=== PATIENT | female | born 1990 | race Caucasian/White ===

== ENCOUNTER 2017-01-07 15:20 | Emergency (ER) | payer OTHER ==
--- NOTE | 2017-01-07 16:05 | ER Document Report ---
ED Medical Screen (RME) - General Chief Complaint: Eye Pain Stated Complaint: LEFT EYE PAIN,REDNESS Time Seen by Provider: 01/07/17 15:55 Notes: 26 yo female c/o acute onset left eye pain since this morning. pain has been escalating. + blurred vision. + headache. pt was seen at [facility] and was told her left pupil was not reacting to the light. sent ot ER for further evaluation. pt is contact wearer. denies any eye trauma. + tearing, no crusting + left conjunctival injection, left pupil noted to be smaller and nonreactive TRAVEL OUTSIDE OF THE [place] IN LAST 30 DAYS: No - Related Data Allergies/Adverse Reactions: erythromycin base [From Pediazole] Allergy (Verified 01/07/17 15:27) sulfisoxazole [From Pediazole] Allergy (Verified 01/07/17 15:27) Past Medical History Renal/ Medical History: Reports: Hx Ovarian Cysts - PCOS. 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
--- NOTE | 2017-01-07 16:08 | ER Document Report ---
ED Eye Complaint - General Mode of Arrival: Ambulatory Information source: Patient, Parent TRAVEL OUTSIDE OF THE [place] IN LAST 30 DAYS: No - HPI Onset: Other - refer to HPI Notes Eye location: Left Contact lenses worn: Yes Contact lenses: Sleeps in them Associated symptoms: Pain, Photophobia, Redness. denies: Itching - General Chief Complaint: Eye Pain Stated Complaint: LEFT EYE PAIN,REDNESS Time Seen by Provider: 01/07/17 15:55 Notes: Patient is a 26 year old female presenting to the ED for acute onset left eye pain since this morning. Patient states she had pain onset as soon as she opened her eyes. Patient states her pain has been getting worse and is photophobic. Patient has sclera conjuntiva on the left. Patient also has some blurred vision and states she feels like one of her migraines is coming on. Patient was seen at [facility] and was told her pupil was not reacting to light and sent to the ED for further evaluation. Patient denies any trauma to her left eye. Patient does wear contacts but is wearing her glasses today. (CHASTITY TINOCO) This 26-year-old female patient who wears contact lenses reports waking up about 630 this morning and noticing discomfort in her left eye. She removed her contact lens at that time. She was fine when she went to bed. There is no history of injury or exposures to the eye. Noted to have photophobia with direct and consensual light. The scleral conjunctiva is injected on the left. Ocular pressure was checked at 20. Pupil is slightly constricted compared to the right but is reactive. Extraocular muscles are intact. (VARSHA PANCHAL) - Related Data Allergies/Adverse Reactions: erythromycin base [From Pediazole] Allergy (Verified 01/07/17 15:27) sulfisoxazole [From Pediazole] Allergy (Verified 01/07/17 15:27) Past Medical History - General Information source: Patient - Social History Smoking Status: Never Smoker Cigarette use (# per day): No Chew tobacco use (# tins/day): No Smoking Education Provided: No Frequency of alcohol use: None Drug Abuse: None Family History: None Patient has suicidal ideation: No Patient has homicidal ideation: No Renal/ Medical History: Reports: Hx Ovarian Cysts - PCOS Past Surgical History: Reports: 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 Review of Systems - Review of Systems Constitutional: No symptoms reported EENT: See HPI, Eye pain, Blurred vision Cardiovascular: No symptoms reported Respiratory: No symptoms reported Gastrointestinal: No symptoms reported Genitourinary: No symptoms reported Female Genitourinary: No symptoms reported Musculoskeletal: No symptoms reported Skin: No symptoms reported Hematologic/Lymphatic: No symptoms reported Neurological/Psychological: See HPI, Headaches -: Yes All other systems reviewed and negative Physical Exam - Vital signs Interpretation: Normal - Vital signs Vitals: Temp Pulse Resp BP Pulse Ox 97.8 F 89 18 130/82 H 98 01/07/17 15:25 01/07/17 15:25 01/07/17 15:25 01/07/17 15:25 01/07/17 15:25 - Notes Notes: GENERAL: Alert, interacts well. Mild distress. HEAD: Normocephalic, atraumatic. EYES: Right pupil is equal, round, and reactive to light. Left eye has conjunctival injection, left pupil noted to be smaller and less reactive than the right. ENT: Moist mucus membranes, tongue midline. NECK: Full range of motion. Supple. Trachea midline. LUNGS: Clear to auscultation bilaterally, no wheezes, rales, or rhonchi. No respiratory distress. HEART: Regular rate and rhythm. No murmurs, gallops, or rubs. ABDOMEN: Soft, non-tender. Non-distended. Normal bowel sounds. EXTREMITIES: Moves all 4 extremities spontaneously. Normal strength. No edema. NEUROLOGICAL: Alert and oriented x3. Normal speech. No focal neurological deficits. GSC 15. PSYCH: Normal affect, normal mood. SKIN: Warm, dry, normal turgor. (CHASTITY TINOCO) Course - Re-evaluation Re-evalutation: 01/07/17 17:54 PROCEEDURE: The left eye was anesthetized with tetracaine and the intraocular pressure was checked with a To-Pen. The pressure was 20. The left eye was then stained with fluorescein stain, there was no corneal uptake. The eye was then irrigated clear with normal saline. Homatropine drops were placed in the left eye. Acular drops were placed in the left eye. At this time the patient reports that her eye does feel much better. The sclera and palpebral conjunctiva is quite injected. There is no lid edema. There are no preauricular lymph nodes palpated. There is no discharge from the noted. The tetracaine did relieve the pain initially suggesting that this is not a uveitis. There is no ophthalmology coverage at this hospital today. The patient sees an independent care center near the hospital that is not open today She will be placed on antibiotic drops, ketorolac drop, and to follow-up with her eye doctor tomorrow morning. (VARSHA PANCHAL) - Vital Signs Vital signs: Temp Pulse Resp BP Pulse Ox 97.8 F 89 18 130/82 H 98 01/07/17 15:25 01/07/17 15:25 01/07/17 15:25 01/07/17 15:25 01/07/17 15:25 Discharge - Discharge Clinical Impression: Conjunctivitis Qualifiers: Conjunctivitis type: acute Acute conjunctivitis type: unspecified Laterality: left Qualified Code(s): H10.32 - Unspecified acute conjunctivitis, left eye Condition: Stable Disposition: HOME, SELF-CARE Additional Instructions: Put 1 gentamicin drops into the left eye every 4 hours. Put 1 ketorolac drop in the left eye every 4 hours. Take Tylenol for pain if needed. Follow-up with your eye doctor tomorrow morning for an eye exam. RETURN TO THE EMERGENCY ROOM IF ANY NEW OR WORSENING SYMPTOMS. Prescriptions: Ketorolac Tromethamine [Acular] 1 drop OU Q4 PRN #5 ml PRN Reason: Forms: Return to Work Scribe Attestation: 01/07/17 18:17 I personally performed the services described in the documentation, reviewed and edited the documentation which was dictated to the scribe in my presence, and it accurately records my words and actions. (VARSHA PANCHAL) Scribe Documentation - Scribe Written by Scribe:: Chastity Tinoco, Mamadouibmason 01/07/2017 17:30 acting as scribe for :: Nelson
[2017-01-07] MEDS ORDERED: TETRACAINE HCL 0.5% OPH SOLN 2 ML OS ONE (16:19)
[2017-01-07] MEDS ORDERED: KETOROLAC TROMETHAMINE 0.45% 4 DROP/0.4 ML DROPERETTE OS ONE (17:01)
[2017-01-07] MEDS ORDERED: GENTAMICIN SULFATE 0.3% OPH SOLN (5 ML/ER DISP) OU SCH (18:00)
[2017-01-07 18:44] VITALS: BP 128/74
== END 2017-01-07 18:42 | disposition home or self-care (01) ==
LOC: ER 15:20
DX: H10.32 Unspecified acute conjunctivitis, left eye (principal); Z88.1 Allergy status to other antibiotic agents
CPT/HCPCS: 99283; J3490